=== PATIENT | female | born 1960 | race Hispanic/Latino ===

== ENCOUNTER → 2017-05-07 | Outpatient (CLI) | payer BC | END | disposition home or self-care (01) | LOC: RAH 09:13 | PROVIDERS: ATTEND Obstetrics & Gynecology | DX: Z12.31 Encounter for screening mammogram for malignant neoplasm of breast (principal) | CPT/HCPCS: 77067 ==

== ENCOUNTER → 2018-10-24 | Outpatient (CLI) | payer BC | END | disposition home or self-care (01) | LOC: RAH 09:49 | PROVIDERS: ATTEND Obstetrics & Gynecology | DX: Z12.31 Encounter for screening mammogram for malignant neoplasm of breast (principal); N88.8 Other specified noninflammatory disorders of cervix uteri; N83.202 Unspecified ovarian cyst, left side; R93.89 Abnormal findings on diagnostic imaging of other specified body structures | CPT/HCPCS: 76830; 77067 ==

== ENCOUNTER 2018-11-24 05:30 | Day surgery (SDC) | payer BC ==
[~2018-11-24] VITALS: Ht 157.5 cm; Wt 74.8 kg
[~2018-11-24 05:30] MED LIST: AMLO5TAB9 PO; CALC1CAP26 PO; DIVA-76 PO; DIVA-78 PO; FOLI1TAB15 PO
[2018-11-24] MEDS ORDERED: SODIUM CHLORIDE 0.9% 1000ML 1,000 ML IV ONE (05:50)
[2018-11-24 06:32] VITALS: BP 122/73
[2018-11-24] MEDS ORDERED: PROPOFOL 10 MG/ML 20ML VIAL IV ONE ×2 (08:34)
[2018-11-24] MEDS ORDERED: LIDOCAINE HCL 1% 20 ML VIAL ONE (08:34)
[2018-11-24 08:50] VITALS: BP 112/74
[2018-11-24 08:55] VITALS: BP 108/74
[2018-11-24 09:00] VITALS: BP 110/75
[2018-11-24 09:05] VITALS: BP 130/75
--- NOTE | 2018-11-24 09:10 | NUR ---
dc ptdc home via wc, no distress noted. accompanied by spouse
== END 2018-11-24 09:10 | disposition home or self-care (01) ==
LOC: ENDO 05:30 → DAH 05:30 → ENDO 09:10
PROVIDERS: ATTEND Internal Medicine
DX: Z12.11 Encounter for screening for malignant neoplasm of colon (principal); D12.5 Benign neoplasm of sigmoid colon; D12.4 Benign neoplasm of descending colon; K64.0 First degree hemorrhoids; K57.30 Diverticulosis of large intestine without perforation or abscess without bleeding; E78.5 Hyperlipidemia, unspecified; G40.802 Other epilepsy, not intractable, without status epilepticus; Z88.1 Allergy status to other antibiotic agents; Z79.899 Other long term (current) drug therapy; Z98.890 Other specified postprocedural states
CPT/HCPCS: 45380; 45385; A4606; J2704 ×2; J7030

== ENCOUNTER → 2019-10-25 | Outpatient (CLI) | payer BC | END | disposition home or self-care (01) | LOC: RAH 11:32 | PROVIDERS: ATTEND Obstetrics & Gynecology | DX: Z12.31 Encounter for screening mammogram for malignant neoplasm of breast (principal); N64.89 Other specified disorders of breast | CPT/HCPCS: 77067 ==

== ENCOUNTER → 2020-11-29 | Outpatient (CLI) | payer BC ==
[~2020-11-29] MED LIST changes: +AMLO-257 PO; -AMLO5TAB9 PO
== END | disposition home or self-care (01) ==
LOC: RAH 10:34
PROVIDERS: ATTEND Obstetrics & Gynecology
DX: Z12.31 Encounter for screening mammogram for malignant neoplasm of breast (principal)
CPT/HCPCS: 77067

== ENCOUNTER → 2021-12-10 | Outpatient (CLI) | payer BC | END | disposition home or self-care (01) | LOC: RAH 09:11 | PROVIDERS: ATTEND Obstetrics & Gynecology | DX: Z12.31 Encounter for screening mammogram for malignant neoplasm of breast (principal) | CPT/HCPCS: 77067 ==

== ENCOUNTER → 2022-12-18 | Outpatient (CLI) | payer BC | END | disposition home or self-care (01) | LOC: RAH 08:22 | PROVIDERS: ATTEND Obstetrics & Gynecology | DX: Z12.31 Encounter for screening mammogram for malignant neoplasm of breast (principal) | CPT/HCPCS: 77067 ==

== ENCOUNTER → 2024-01-04 | Outpatient (CLI) | payer BC | END | disposition home or self-care (01) | LOC: RAH 09:23 | PROVIDERS: ATTEND Obstetrics & Gynecology | DX: Z12.31 Encounter for screening mammogram for malignant neoplasm of breast (principal); R92.323 Mammographic fibroglandular density, bilateral breasts | CPT/HCPCS: 77067 ==

== ENCOUNTER 2024-10-19 05:50 | Day surgery (SDC) | payer BC ==
[2024-10-19] VITALS (9 sets, daily range): BP systolic 102–145; BP diastolic 54–86; PULSE 69–92; RESP 14–18; TEMP 97–97.3
[~2024-10-19] VITALS: Ht 157.5 cm; Wt 75.7 kg
[~2024-10-19 05:50] MED LIST changes: -AMLO-257 PO; +ASCO100031 PO; -DIVA-76 PO; -DIVA-78 PO; -FOLI1TAB15 PO; +VITA-395 PO; +VITAMIN B12 SL; +ZONI100C87 PO
[2024-10-19] MEDS: 0.9%NACL 1000ML 1,000 ML IV ONE (07:53)
[2024-10-19] MEDS ORDERED: proPOFol 10 MG/ML 20ML VIAL IV ONE (08:56)
--- NOTE | 2024-10-19 10:14 | NUR ---
Full and complete discharge instructions given to Patient and Family both verbally and in writing. Explained GI procedure precautions and follow up. All questions answered. PIV removed with catheter tip intact. Home with Family W/C to POV.
== END 2024-10-19 10:15 | disposition home or self-care (01) ==
LOC: DAH 05:50 → SUH 05:50
PROVIDERS: ATTEND Internal Medicine
DX: Z12.11 Encounter for screening for malignant neoplasm of colon (principal); D12.8 Benign neoplasm of rectum; K57.30 Diverticulosis of large intestine without perforation or abscess without bleeding; K64.9 Unspecified hemorrhoids; G40.509 Epileptic seizures related to external causes, not intractable, without status epilepticus; E78.5 Hyperlipidemia, unspecified; G40.909 Epilepsy, unspecified, not intractable, without status epilepticus; Z88.1 Allergy status to other antibiotic agents; Z86.0100 Personal history of colon polyps, unspecified; Z80.0 Family history of malignant neoplasm of digestive organs; Z90.89 Acquired absence of other organs; Z79.899 Other long term (current) drug therapy
CPT/HCPCS: 45380; 82948 ×2; J7030; J2704; A4620; A4649; A4215 ×2; A4223; A4222; A4221; A4663; A4606; 45382; J3490